=== PATIENT | female | born 1970 | race Caucasian/White ===

== ENCOUNTER 2016-03-09 17:53 | Observation (INO) | payer OTHER ==
[~2016-03-09] VITALS: Ht 160 cm; Wt 133.1 kg
[2016-03-09] MEDS ORDERED: ASPIRIN 81 MG TAB.CHEW PO ONE (20:30)
[2016-03-09 20:37] LABS: BASO # 0.1 x10^3/uL (0.0-0.2); BASO % 1 % (0-3); EOS % 1 % (0-3); HEMATOCRIT 43.2 % (36.0-47.0); LYMPH % 27 % (24-48); MEAN CORPUSCULAR HEMOGLOBIN 27 pg (25-35); MEAN CORPUSCULAR HGB CONC 32 g/dL (31-37); MEAN CORPUSCULAR VOLUME 85 fL (79-100); MONO % 7 % (0-9); NEUT % 65 % (31-73); PLATELET COUNT 213 x10^3/uL (140-400); RED BLOOD COUNT 5.09 x10^6/uL (3.50-5.40); RED CELL DISTRIBUTION WIDTH 14.4 % (11.5-14.5)
[2016-03-09 20:50] LABS: CALCIUM 9.4 mg/dL (8.5-10.1); CREATININE 0.9 mg/dL (0.6-1.0); POTASSIUM 3.7 mmol/L (3.5-5.1)
[2016-03-09 20:56] LABS: ALBUMIN 3.9 g/dL (3.4-5.0); DIRECT BILIRUBIN 0.1 mg/dL (0.0-0.2); TOTAL BILIRUBIN 0.3 mg/dL (0.2-1.0); TOTAL PROTEIN 7.4 g/dL (6.4-8.2)
[2016-03-09] MEDS ORDERED: ONDANSETRON PF 4 MG/2 ML VIAL. IV PRN (22:45)
[2016-03-09] MEDS ORDERED: MORPHINE SULFATE 2 MG/ML DISP.SYRIN. IV PRN (22:45)
[2016-03-09] MEDS ORDERED: NITROGLYCERIN SUBLINGUAL 0.4 MG BOTTLE OF 25. SL PRN (22:45)
--- NOTE | 2016-03-09 22:50 | PHYS DOC ---
Past Medical History Past Medical History: Hypertension Past Surgical History: Cholecystectomy Alcohol Use: Occasionally Drug Use: None Adult General Chief Complaint Chief Complaint: CHEST WALL PAIN HPI HPI 46-year-old female presenting the emergency department with dizziness sharp left -sided chest pain with palpitations this started approximately a few hours ago. She denies nausea vomiting or diaphoresis. She denies unilateral leg swelling hemoptysis personal or family history of blood clotting disorders. Onset 2 hours ago Location chest pain duration intermittent Moderate to severe No alleviating factors Review of Systems Review of Systems Negative for abdominal pain nausea vomiting diaphoresis. Positive for chest pain without shortness of breath. All other review of systems is negative unless otherwise noted in history of present illness. Current Medications Current Medications Current Medications Medications (Trade) Dose Ordered Sig/Ryan Start Time Stop Time Status Last Admin Dose Admin Aspirin (Children'S Aspirin) 324 mg 1X ONCE 03/09/16 20:30 03/09/16 20:31 DC 03/09/16 20:25 324 MG Morphine Sulfate 2 mg PRN Q2HR PRN 03/09/16 22:45 03/10/16 22:44 Nitroglycerin (Nitrostat) 0.4 mg PRN Q5MIN PRN 03/09/16 22:45 03/10/16 22:44 Ondansetron HCl (Zofran) 4 mg PRN Q8HRS PRN 03/09/16 22:45 03/10/16 22:44 Allergies Allergies Allergies Coded Allergies Type Severity Reaction Last Updated Verified No Known Drug Allergies 03/09/16 No Physical Exam Physical Exam Constitutional: Well developed, well nourished, no acute distress, non-toxic appearance. HENT: Normocephalic, atraumatic, bilateral external ears normal, oropharynx moist, no oral exudates, nose normal. Eyes: PERRLA, EOMI, conjunctiva normal, no discharge. [] Neck: Normal range of motion, no tenderness, supple, no stridor. Cardiovascular:Heart rate regular rhythm, no murmur Lungs & Thorax: Bilateral breath sounds clear to auscultation [] Abdomen: Bowel sounds normal, soft, no tenderness, no masses, no pulsatile masses. Skin: Warm, dry, no erythema, no rash. Back: No tenderness, no CVA tenderness. [] Extremities: No tenderness, no cyanosis, no clubbing, ROM intact, no edema. No evidence of DVT present Neurologic: Alert and oriented X 3, normal motor function, normal sensory function, no focal deficits noted. [] Psychologic: Affect normal, judgement normal, mood normal. [] Current Patient Data Vital Signs Vital Signs Date Time Temp Pulse Resp B/P Pulse Ox O2 Delivery O2 Flow Rate FiO2 03/09/16 22:00 60 159/69 98 Room Air 03/09/16 20:30 17 03/09/16 19:43 98.6 98.6 Lab Values Laboratory Tests Test 03/09/16 20:30 White Blood Count 11.0x10^3/uL (4.0-11.0) Red Blood Count 5.09x10^6/uL (3.50-5.40) Hemoglobin 14.0g/dL (12.0-15.5) Hematocrit 43.2% (36.0-47.0) Mean Corpuscular Volume 85fL (79-100) Mean Corpuscular Hemoglobin 27pg (25-35) Mean Corpuscular Hemoglobin Concent 32g/dL (31-37) Red Cell Distribution Width 14.4% (11.5-14.5) Platelet Count 213x10^3/uL (140-400) Neutrophils (%) (Auto) 65% (31-73) Lymphocytes (%) (Auto) 27% (24-48) Monocytes (%) (Auto) 7% (0-9) Eosinophils (%) (Auto) 1% (0-3) Basophils (%) (Auto) 1% (0-3) Neutrophils # (Auto) 7.1x10^3uL (1.8-7.7) Lymphocytes # (Auto) 3.0x10^3/uL (1.0-4.8) Monocytes # (Auto) 0.7x10^3/uL (0.0-1.1) Eosinophils # (Auto) 0.1x10^3/uL (0.0-0.7) Basophils # (Auto) 0.1x10^3/uL (0.0-0.2) Sodium Level 143mmol/L (136-145) Potassium Level 3.7mmol/L (3.5-5.1) Chloride Level 102mmol/L (98-107) Carbon Dioxide Level 30mmol/L (21-32) Anion Gap 11 (6-14) Blood Urea Nitrogen 15mg/dL (7-20) Creatinine 0.9mg/dL (0.6-1.0) Estimated GFR (Cockcroft-Gault) 68.0 Glucose Level 97mg/dL (70-99) Calcium Level 9.4mg/dL (8.5-10.1) Total Bilirubin 0.3mg/dL (0.2-1.0) Direct Bilirubin 0.1mg/dL (0.0-0.2) Aspartate Amino Transferase (AST) 20U/L (15-37) Alanine Aminotransferase (ALT) 22U/L (14-59) Alkaline Phosphatase 102U/L (46-116) Troponin I Quantitative < 0.017ng/mL (0.000-0.055) [id number]-Type Natriuretic Peptide 140pg/mL (0-124) H Total Protein 7.4g/dL (6.4-8.2) Albumin 3.9g/dL (3.4-5.0) Lipase 191U/L (73-393) Laboratory Tests 03/09/16 20:30 Laboratory Tests 03/09/16 20:30 EKG EKG EKG shows sinus rhythm with regular rate. ST segments congruent. [place] normal. Intervals normal. Nonspecific T-wave inversions in lead V1 and V2. Radiology/Procedures Radiology/Procedures Chest x-ray shows no acute or obvious infiltrate or pneumothorax. Course & Med Decision Making Course & Med Decision Making Pertinent Labs and Imaging studies reviewed. (See chart for details) 46-year-old female presenting the emergency department with chest pain. Vital signs unremarkable. Physical exam unremarkable. EKG unremarkable. Chest x-ray unremarkable. Labs within normal limits. Given the timing of the patient's symptoms she was admitted for serial troponins. Cardiology consultation placed. Dragon Disclaimer Dragon Disclaimer This electronic medical record was generated, in whole or in part, using a voice recognition dictation system. Departure Departure Impression: Primary Impression: Chest pain Disposition: ADMITTED INPATIENT Admitting Physician: Rosie Vergara Condition: STABLE Referrals: NO PCP (PCP) SERGE OJEDA MD Mar 09, 2016 22:50
[2016-03-09] MEDS ORDERED: ATEN50TA PO (23:20)
[2016-03-09] MEDS ORDERED: HYDR25TA9 PO (23:21)
[2016-03-10 00:20] VITALS: BP 145/89
--- NOTE | 2016-03-10 00:36 | ACF ---
Admission Forms Criteria CHEST PAIN Clinical Indications for Admission to Inpatient Care (Place 'X' for any and all applicable criteria): Admission is indicated for chest pain and ANY ONE of the following(1)(2)(3)(4)(5 ): [ ]I. Angina with acute coronary syndrome (Also use Myocardial Infarction or Angina guideline) [ ]II. Hemodynamic instability [ ]III. Angina needing acute intervention as indicated by ALL of the following( 11)(12): [ ]a) Unstable angina is present as indicated by angina that is ANY ONE of the following: [ ]i) New onset [ ]ii) Nocturnal [ ]iii) Prolonged at rest [ ]iv) Progressive [ ]b) Angina warrants acute intervention as indicated by ANY ONE of the following: [ ]i) Recurrent angina (e.g, not responding as previously to treatment) [ ]ii) Angina at rest or with low-level activities despite initial medical therapy [ ]iii) New or presumably new ST-segment depression on ECG [ ]iv) Signs or symptoms of heart failure (eg, dyspnea, pulmonary edema) [ ]v) New or worsening mitral regurgitation [ ]vi) Hemodynamic instability [ ]vii) Dangerous arrhythmia (eg, sustained ventricular tachycardia) [ ]viii) History of percutaneous coronary intervention within 6 months [ ]ix) History of coronary artery bypass graft surgery [ ]x) MARCELINA risk score of 2 or greater[A] [ ]xi) History of Diabetes(14) [ ]xii) High-risk cardiac ischemia findings on noninvasive testing (e.g, echocardiogram, treadmill testing, nuclear scan) [ ]xiii) Chronic renal insufficiency (ie, estimated GFR less than 60 mL/min/1.732m) [ ]xiv) Left ventricular ejection fraction less than 40% [ ]IV. Evidence of CO (eg, cardiac biomarkers positive, ST-segment elevation on ECG) also use Myocardial Infarction Criteria Form. [ ]V. Pulmonary edema [ ]. Respiratory distress [ ]VII. Chest pain indicative of serious diagnosis other than coronary artery disease (eg, aortic dissection) [ ]VIII. Contraindications and/or Inappropriate clinical situations for Observational Care in patients with Chest Pain, when ANY ONE of the following is required: [ ]a) Patient with risk factor for pulmonary embolism, acute coronary syndrome and myocardial infarction (18) [ ]b) Patient with Pulmonary embolism require an average LOS of 4.3 days, therefore emergency department observation management is inappropriate 18,23 [ ]c) Painful condition/s in the elderly, have the highest rate of recidivism after emergency department observation management (10.8%) 20,21,22 [ ]d) Elevated cardiac biomarker requires intensive and exhaustive care (19) [ ]IX. General contraindications and/or Inappropriate clinical situations for Observational Care in patients with Chest Pain, when ANY ONE of the following is required: [ ]a) Prediction of prolongation of LOS based on ANY ONE of the following may be considered as a contraindication for observational care 2, 3, 4, 5, 6, 7, 8, 9, 10, 11 [ ]i) Age > 65 yrs. [ ]ii) Patient arriving by ambulance [ ]iii) Patient with high acuity [ ]iv) Patient requiring vital sign monitoring [ ]v) Patient on IV medication [ ]b) Systolic blood pressures 180mmHg 3,12 [ ]c) Patient with altered mental status including delirium and other alteration of consciousness, (3) [ ]d) Patient whose discharge disposition will be to a snf home or rehabilitation home should not be managed in Emergency Department Observation Unit. CMS rule requires 3 days hospital stay before such placement. 3,13 [ ]e) Patient with failure to thrive due to broad array of etiologies 3,16,17 [ ]f) Inability to ambulate 3,14 Extended stay beyond goal length of stay may be needed for (1)(28): [ ]a) Specific condition diagnosed after evaluation (eg, pulmonary embolism, aortic dissection) [ ]b) Unstable angina [ ]c) Continued suspicion of acute coronary syndrome with inability to complete needed cardiac evaluation (eg, patient clinically unable to undergo stress testing) [ ]d) Myocardial infarction (Contents from ANGINA and CHEST PAIN clinical indications for admission to inpatient care have been integrated in this form) The original [employer] content created by [employer] has been revised. The portions of the content which have been revised are identified through the use of italic text or in bold, and [employer] has neither reviewed nor approved the modified material. All other unmodified content is copyright [employer]. Please see references footnoted in the original [employer] edition 2016 LILA MATHEWS Mar 10, 2016 00:36
--- NOTE | 2016-03-10 00:54 | ACF ---
Admission Forms Criteria PAIN MANAGEMENT [facility] Clinical Indications for Admission to Inpatient Care (Place 'X' for any and all applicable criteria): Hospital admission is needed for appropriate care of the patient because of ANY ONE of the following are present (1)(2)(3)(4)(5): [X]I. Severe pain requiring acute inpatient management as indicated by ALL of the following (2)(5)(10): [X]a) Continuous or frequent (eg, every 2 to 4 hours) parenteral analgesics required [A] [ ]b) Necessity (ie, alternative approaches not effective) for analgesic regimen that can only be performed or initiated in inpatient setting [ ]II. Pain causing debilitation to the point of inability to function or be supported at any other level of care [ ]III. Severe side effects from pain medications as indicated by ANY ONE of the following (12)(13)(14)(15): [ ]a) Uncontrollable seizures [ ]b) Cardiac arrhythmias [ ]c) Severe volume depletion [ ]d) Vomiting that is uncontrollable at any other level of care [ ]e) Altered mental status (Terry coma scale score less than 13) [ ]f) Obstipation with inadequate GI function to maintain nutrition [ ]g) Dehydration that is severe or persistent The original [employer] content created by [employer] has been revised. The portions of the content which have been revised are identified through the use of italic text or in bold, and [employer] [email or web address] has neither reviewed nor approved the modified material. All other unmodified content is copyright [employer]. Please see references footnoted in the original [employer] edition 2016 Admission Criteria Met?: Yes LILA MATHEWS Mar 10, 2016 00:54
[2016-03-10 03:00] VITALS: BP 118/54
--- NOTE | 2016-03-10 06:10 | EKG ---
[facility] [address] [place] [address] Test Date: 2016-03-09 Test Time: 19:41:33 Pat Name: CARLOS MERCER Department: Room: [facility] Gender: F [employer] Tester: : 1970 Requested By: SERGE OJEDA Order Number: [id number] Reading MD: Geoff Cabral Measurements Intervals Speculator Rate: 58 P: 0 MN: 152 QRS: -3 QRSD: 92 T: 14 QT: 438 QTc: 434 Interpretive Statements SINUS RHYTHM Electronically Signed On 03-11-2016 15:29:11 LOOM OPERATOR APPRENTICE by Geoff Cabral
[2016-03-10 07:59] VITALS: BP 107/51
[2016-03-10 08:03] LABS: BASO # 0.1 x10^3/uL (0.0-0.2); BASO % 1 % (0-3); EOS % 1 % (0-3); HEMATOCRIT 40.5 % (36.0-47.0); HEMOGLOBIN 12.9 g/dL (12.0-15.5); LYMPH # 3.2 x10^3/uL (1.0-4.8); LYMPH % 36 % (24-48); MEAN CORPUSCULAR HEMOGLOBIN 27 pg (25-35); MEAN CORPUSCULAR HGB CONC 32 g/dL (31-37); MEAN CORPUSCULAR VOLUME 85 fL (79-100); MONO % 7 % (0-9); NEUT % 55 % (31-73); PLATELET COUNT 171 x10^3/uL (140-400); RED BLOOD COUNT 4.74 x10^6/uL (3.50-5.40); RED CELL DISTRIBUTION WIDTH 14.8 % (11.5-14.5); WHITE BLOOD COUNT 8.7 x10^3/uL (4.0-11.0)
[2016-03-10 08:06] LABS: CALCIUM 8.9 mg/dL (8.5-10.1); CREATININE 0.9 mg/dL (0.6-1.0); POTASSIUM 3.2 mmol/L (3.5-5.1)
--- NOTE | 2016-03-10 08:22 | RAD ---
EXAM: Chest, single view. HISTORY: Chest pain. COMPARISON: None. FINDINGS: A frontal view of the chest is obtained. There is no infiltrate, effusion or pneumothorax. The heart is normal in size. IMPRESSION: No acute pulmonary finding.
[2016-03-10] MEDS ORDERED: ATENOLOL 50 MG TABLET PO SCH (10:00)
[2016-03-10] MEDS ORDERED: HYDROCHLOROTHIAZIDE 25 MG TABLET PO SCH (10:00)
--- NOTE | 2016-03-10 10:25 | PDOC2 ---
CARDIAC CONSULT DATE OF CONSULT Date of Consult DATE: 03/10/16 TIME: 10:19 REASON FOR CONSULT Reason for Consult: Chest pain REFERRING PHYSICIAN Referring Physician: Shahrzad SOURCE Source: Chart review, Patient HISTORY OF PRESENT ILLNESS HISTORY OF PRESENT ILLNESS This is a 46 yo female admitted for complains of chest pain. dizziness, palpitations. Reports she came from [place] about a month ago and drove to [place]. She also was taking OCP with last dose about a week ago and also quit smoking about 5 days ago. Denies any prior VTE, CAD, falls or any recent injury. No significant swelling to bilateral LE. Reports that in the last 2 weeks she has been having episodes of palpitations which not long lasting about 2-3x weekly. 2 days ago she had palpitations but did not bother her as much as what happened to her at work yesterday while walking. She felt left sharp pain , palpitations, then dizziness so she went ahead and sat down. [place] left chest tightness nonradiating and felt anxious and maybe SOA. No diaphoresis, nausea or vomiting. Her symptoms lasted about 1 hour before it got better. Currently she is asymptomatic and at home she takes atenolol, HCTZ for her HTN. PAST MEDICAL HISTORY Past Medical History HTN, morbid obesity (lost about 90 lbs so far with diet and exercise) otherwise no other pertinent history PAST SURGICAL HISTORY Past Surgical History: Cholecystectomy FAMILY HISTORY Family History: Hypertension, Stroke SOCIAL HISTORY Smoke: <1 pack per day (2 yrs) ALCOHOL: occassional Drugs: None Lives: Alone CURRENT MEDICATIONS CURRENT MEDICATIONS Current Medications Medications (Trade) Dose Ordered Sig/Ryan Route PRN Reason Start Time Stop Time Status Last Admin Dose Admin Aspirin (Children'S Aspirin) 324 mg 1X ONCE PO 03/09/16 20:30 03/09/16 20:31 DC 03/09/16 20:25 ALLERGIES ALLERGIES: Coded Allergies: No Known Drug Allergies (Unverified , 03/09/16) ROS Review of System 14 point ROS evaluated with pertinent positives noted per HPI PHYSICAL EXAM General: Alert, Oriented X3, Cooperative, No acute distress HEENT: Atraumatic, Mucous membr. moist/pink Lungs: Clear to auscultation, Normal air movement Heart: Regular rate, Normal S1, Normal S2, No murmurs Abdomen: Soft, No tenderness, Other (obesity) Extremities: No edema, Other (negativ homans) Skin: No breakdown, No significant lesion Neuro: Normal speech, Sensation intact Psych/Mental Status: Mental status NL, Mood NL MUSCULOSKELETAL: Full range of motion without pain VITALS VITALS Vital Signs Date Time Temp Pulse Resp B/P Pulse Ox O2 Delivery O2 Flow Rate FiO2 03/10/16 07:59 98.1 53 18 107/51 98 Room Air 98.1 LABS Lab: Laboratory Tests Test 03/09/16 20:30 03/10/16 07:00 White Blood Count 11.0x10^3/uL (4.0-11.0) 8.7x10^3/uL (4.0-11.0) Red Blood Count 5.09x10^6/uL (3.50-5.40) 4.74x10^6/uL (3.50-5.40) Hemoglobin 14.0g/dL (12.0-15.5) 12.9g/dL (12.0-15.5) Hematocrit 43.2% (36.0-47.0) 40.5% (36.0-47.0) Mean Corpuscular Volume 85fL (79-100) 85fL (79-100) Mean Corpuscular Hemoglobin 27pg (25-35) 27pg (25-35) Mean Corpuscular Hemoglobin Concent 32g/dL (31-37) 32g/dL (31-37) Red Cell Distribution Width 14.4% (11.5-14.5) 14.8% (11.5-14.5) Platelet Count 213x10^3/uL (140-400) 171x10^3/uL (140-400) Neutrophils (%) (Auto) 65% (31-73) 55% (31-73) Lymphocytes (%) (Auto) 27% (24-48) 36% (24-48) Monocytes (%) (Auto) 7% (0-9) 7% (0-9) Eosinophils (%) (Auto) 1% (0-3) 1% (0-3) Basophils (%) (Auto) 1% (0-3) 1% (0-3) Neutrophils # (Auto) 7.1x10^3uL (1.8-7.7) 4.8x10^3uL (1.8-7.7) Lymphocytes # (Auto) 3.0x10^3/uL (1.0-4.8) 3.2x10^3/uL (1.0-4.8) Monocytes # (Auto) 0.7x10^3/uL (0.0-1.1) 0.6x10^3/uL (0.0-1.1) Eosinophils # (Auto) 0.1x10^3/uL (0.0-0.7) 0.1x10^3/uL (0.0-0.7) Basophils # (Auto) 0.1x10^3/uL (0.0-0.2) 0.1x10^3/uL (0.0-0.2) Sodium Level 143mmol/L (136-145) 142mmol/L (136-145) Potassium Level 3.7mmol/L (3.5-5.1) 3.2mmol/L (3.5-5.1) Chloride Level 102mmol/L (98-107) 103mmol/L (98-107) Carbon Dioxide Level 30mmol/L (21-32) 31mmol/L (21-32) Anion Gap 11 (6-14) 8 (6-14) Blood Urea Nitrogen 15mg/dL (7-20) 15mg/dL (7-20) Creatinine 0.9mg/dL (0.6-1.0) 0.9mg/dL (0.6-1.0) Estimated GFR (Cockcroft-Gault) 68.0 68.0 Glucose Level 97mg/dL (70-99) 93mg/dL (70-99) Calcium Level 9.4mg/dL (8.5-10.1) 8.9mg/dL (8.5-10.1) Total Bilirubin 0.3mg/dL (0.2-1.0) Direct Bilirubin 0.1mg/dL (0.0-0.2) Aspartate Amino Transf (AST/SGOT) 20U/L (15-37) Alanine Aminotransferase (ALT/SGPT) 22U/L (14-59) Alkaline Phosphatase 102U/L (46-116) Troponin I Quantitative < 0.017ng/mL (0.000-0.055) < 0.017ng/mL (0.000-0.055) VF-Enz-X-Type Natriuretic Peptide 140pg/mL (0-124) Total Protein 7.4g/dL (6.4-8.2) Albumin 3.9g/dL (3.4-5.0) Lipase 191U/L (73-393) ASSESSMENT/PLAN ASSESSMENT/PLAN 1. Chest pain: Notable for chest pain and palpitations. Troponin series normal ruling out AMI. EKG SR with asymmetrical t wave inversion to septal leads with LAE otherwise no significant acute changes. Tele with SB in the 40s likely from atenolol use with hypokalemia. QTc 407. Replace K. Hypercoagulable state with noted obesity/OCP/tobaccoism. Will check DDIMER and if positive then will proceed with CTA. If negative then will consider for MPI, likely with treadmill /dobutamine if bradycardia continues. TTE today, TSH, lipid panel. 2. Asymptomatic bradycardia: stable. Suspect induced by atenolol use. 3. Morbid obesity: BMI 52. Continue with lifestyle modification 4. OCP with smoking: quit both about a week ago. 5. HTN: labile. Continue with HCTZ but will utilize low dose lisinopril instead. 6. Hypokalemia: replace Problems: MICHAEL NG APRN Mar 10, 2016 10:25
--- NOTE | 2016-03-10 10:29 | PDOC1 ---
History and Physical Date of Admission Date of Admission DATE: 03/10/16 TIME: 10:23 Identification/Chief Complaint Chief Complaint chest pain Source Source: Chart review, Patient History of Present Illness History of Present Illness she was at work yesterday, 5 pm, had worsening chest pain with pressure sensation, then "jumping" sensation of left chest wall, she "could feel her heart pounding" she did not take her pulse at the time. she has prior symptoms similar, and had a nuclear stress test 15 years ago. pain did not improve with rest, she felt "squeezing around her heart" Htn, good control obesity, she is trying to lose weight, Past Medical History Cardiovascular: HTN GI: No pertinent hx Heme/Onc: No pertinent hx Rheumatologic: No pertinent hx Infectious disease: No pertinent hx Endocrine: Other (obese) Dermatology: No pertinent hx Family History Family History: No Significant Social History Smoke: No ALCOHOL: none Current Problem List Problem List Problems Medical Problems: (1) Chest pain Status: Acute Problems: Current Medications Current Medications Current Medications Aspirin (Children'S Aspirin) 324 mg 1X ONCE PO Last administered on 03/09/16t 20:25; Start 03/09/16 at 20:30; Stop 03/09/16 at 20:31; Status DC Ondansetron HCl (Zofran) 4 mg PRN Q8HRS PRN IV NAUSEA/VOMITING; Start 03/09/16 at 22:45; Stop 03/10/16 at 22:44 Morphine Sulfate 2 mg PRN Q2HR PRN IV SEVERE PAIN; Start 03/09/16 at 22:45; Stop 03/10/16 at 22:44 Nitroglycerin (Nitrostat) 0.4 mg PRN Q5MIN PRN SL CHEST PAIN; Start 03/09/16 at 22:45; Stop 03/10/16 at 22:44 Atenolol (Tenormin) 50 mg DAILY PO ; Start 03/10/16 at 10:00 Hydrochlorothiazide (Hydrodiuril) 25 mg DAILY PO ; Start 03/10/16 at 10:00 Lidocaine (Lidoderm) 1 patch DAILY TD ; Start 03/10/16 at 11:00 Active Scripts Active Reported Hydrochlorothiazide Tablet (Hydrochlorothiazide) 25 Mg Tablet 25 Mg PO DAILY Atenolol 50 Mg Tablet 1 Tab PO DAILY Allergies Allergies: Coded Allergies: No Known Drug Allergies (Unverified , 03/09/16) ROS General: No: Appetite, Chills, Fatigue, Malaise, Night Sweats, Other PSYCHOLOGICAL ROS: No: Anxiety, Behavioral Disorder, Concentration difficultie , Decreased libido, Depression, Disorientation, Hallucinations, Hostility, Irritablity, Memory difficulties, Mood Swings, Obsessive thoughts, Other, Physical abuse, Sexual abuse, Sleep disturbances, Suicidal ideation Eyes: No Blurry vision, No Decreased vision, No Double vision, No Dry eyes, No Excessive tearing, No Eye Pain, No Itchy Eyes, No Loss of vision, No Other, No Photophobia, No Scotomata, No Uses contacts, No Uses glasses HEENT: No: Epistaxis, Heacaches, Hearing change, Nasal congestion, Nasal discharge, Oral lesions, Other, Sinus pain, Sneezing, Snoring, Sore Throat, Tinnitus, Vertigo, Visual Changes, Vocal changes Cardiovascular: yes Chest Pain, yes Palpitations, No Edema, No Lt Headedness, No Orthopnea, No Other, No Paroxysmal Noc. Dyspnea Gastrointestinal: No Abdominal Pain, No Constipation, No Diarrhea, No Hematochezia, No Melena, No Nausea, No Other, No Vomiting Genitourinary: No , No , No , No , No , No , No , No Discharge, No Dysuria, No Flank Pain, No Frequency, No Hematuria, No Incontinence, No Other, No Pain, No Retention, No Urgency Musculoskeletal: No Gait Disturbance, No Joint Pain, No Joint Stiffness, No Joint Swelling, No Muscle Pain, No Muscular Weakness, No Other, No Pain In:, No Swelling In: Neurological: No Behavorial Changes, No Bowel/Bladder ControlChng, No Confusion , No Dizziness, No Gait Disturbance, No Headaches, No Impaired Coord/balance, No Memory Loss, No Numbness/Tingling, No Other, No Seizures, No Speech Problems , No Tremors, No Visual Changes, No Weakness Skin: No Acne, No Dry Skin, No Eczema, No Hair Changes, No Lumps, No Mole Changes, No Mottling, No Nail Changes, No Other, No Pruritus, No Rash, No Skin Lesion Changes Physical Exam General: Alert, Oriented X3, Cooperative, No acute distress HEENT: Atraumatic, PERRLA, EOMI Lungs: Clear to auscultation Heart: other (painful to touch left of sternum, no pleurisy) Abdomen: Normal bowel sounds, Soft, No tenderness Rectal Exam: not examined Extremities: No cyanosis, No edema, Normal pulses Skin: No rashes, No significant lesion Neuro: Normal tone, Sensation intact, Cranial nerves 3-12 NL Psych/Mental Status: Mental status NL, Mood NL Vitals Vitals Vital Signs Date Time Temp Pulse Resp B/P Pulse Ox O2 Delivery O2 Flow Rate FiO2 03/10/16 07:59 98.1 53 18 107/51 98 Room Air 98.1 Labs Labs Laboratory Tests Test 03/09/16 20:30 03/10/16 07:00 White Blood Count 11.0x10^3/uL (4.0-11.0) 8.7x10^3/uL (4.0-11.0) Red Blood Count 5.09x10^6/uL (3.50-5.40) 4.74x10^6/uL (3.50-5.40) Hemoglobin 14.0g/dL (12.0-15.5) 12.9g/dL (12.0-15.5) Hematocrit 43.2% (36.0-47.0) 40.5% (36.0-47.0) Mean Corpuscular Volume 85fL (79-100) 85fL (79-100) Mean Corpuscular Hemoglobin 27pg (25-35) 27pg (25-35) Mean Corpuscular Hemoglobin Concent 32g/dL (31-37) 32g/dL (31-37) Red Cell Distribution Width 14.4% (11.5-14.5) 14.8% (11.5-14.5) Platelet Count 213x10^3/uL (140-400) 171x10^3/uL (140-400) Neutrophils (%) (Auto) 65% (31-73) 55% (31-73) Lymphocytes (%) (Auto) 27% (24-48) 36% (24-48) Monocytes (%) (Auto) 7% (0-9) 7% (0-9) Eosinophils (%) (Auto) 1% (0-3) 1% (0-3) Basophils (%) (Auto) 1% (0-3) 1% (0-3) Neutrophils # (Auto) 7.1x10^3uL (1.8-7.7) 4.8x10^3uL (1.8-7.7) Lymphocytes # (Auto) 3.0x10^3/uL (1.0-4.8) 3.2x10^3/uL (1.0-4.8) Monocytes # (Auto) 0.7x10^3/uL (0.0-1.1) 0.6x10^3/uL (0.0-1.1) Eosinophils # (Auto) 0.1x10^3/uL (0.0-0.7) 0.1x10^3/uL (0.0-0.7) Basophils # (Auto) 0.1x10^3/uL (0.0-0.2) 0.1x10^3/uL (0.0-0.2) Sodium Level 143mmol/L (136-145) 142mmol/L (136-145) Potassium Level 3.7mmol/L (3.5-5.1) 3.2mmol/L (3.5-5.1) Chloride Level 102mmol/L (98-107) 103mmol/L (98-107) Carbon Dioxide Level 30mmol/L (21-32) 31mmol/L (21-32) Anion Gap 11 (6-14) 8 (6-14) Blood Urea Nitrogen 15mg/dL (7-20) 15mg/dL (7-20) Creatinine 0.9mg/dL (0.6-1.0) 0.9mg/dL (0.6-1.0) Estimated GFR (Cockcroft-Gault) 68.0 68.0 Glucose Level 97mg/dL (70-99) 93mg/dL (70-99) Calcium Level 9.4mg/dL (8.5-10.1) 8.9mg/dL (8.5-10.1) Total Bilirubin 0.3mg/dL (0.2-1.0) Direct Bilirubin 0.1mg/dL (0.0-0.2) Aspartate Amino Transf (AST/SGOT) 20U/L (15-37) Alanine Aminotransferase (ALT/SGPT) 22U/L (14-59) Alkaline Phosphatase 102U/L (46-116) Troponin I Quantitative < 0.017ng/mL (0.000-0.055) < 0.017ng/mL (0.000-0.055) XE-Xwm-P-Type Natriuretic Peptide 140pg/mL (0-124) Total Protein 7.4g/dL (6.4-8.2) Albumin 3.9g/dL (3.4-5.0) Lipase 191U/L (73-393) Laboratory Tests Test 03/09/16 20:30 03/10/16 07:00 White Blood Count 11.0x10^3/uL (4.0-11.0) 8.7x10^3/uL (4.0-11.0) Red Blood Count 5.09x10^6/uL (3.50-5.40) 4.74x10^6/uL (3.50-5.40) Hemoglobin 14.0g/dL (12.0-15.5) 12.9g/dL (12.0-15.5) Hematocrit 43.2% (36.0-47.0) 40.5% (36.0-47.0) Mean Corpuscular Volume 85fL (79-100) 85fL (79-100) Mean Corpuscular Hemoglobin 27pg (25-35) 27pg (25-35) Mean Corpuscular Hemoglobin Concent 32g/dL (31-37) 32g/dL (31-37) Red Cell Distribution Width 14.4% (11.5-14.5) 14.8% (11.5-14.5) Platelet Count 213x10^3/uL (140-400) 171x10^3/uL (140-400) Neutrophils (%) (Auto) 65% (31-73) 55% (31-73) Lymphocytes (%) (Auto) 27% (24-48) 36% (24-48) Monocytes (%) (Auto) 7% (0-9) 7% (0-9) Eosinophils (%) (Auto) 1% (0-3) 1% (0-3) Basophils (%) (Auto) 1% (0-3) 1% (0-3) Neutrophils # (Auto) 7.1x10^3uL (1.8-7.7) 4.8x10^3uL (1.8-7.7) Lymphocytes # (Auto) 3.0x10^3/uL (1.0-4.8) 3.2x10^3/uL (1.0-4.8) Monocytes # (Auto) 0.7x10^3/uL (0.0-1.1) 0.6x10^3/uL (0.0-1.1) Eosinophils # (Auto) 0.1x10^3/uL (0.0-0.7) 0.1x10^3/uL (0.0-0.7) Basophils # (Auto) 0.1x10^3/uL (0.0-0.2) 0.1x10^3/uL (0.0-0.2) Sodium Level 143mmol/L (136-145) 142mmol/L (136-145) Potassium Level 3.7mmol/L (3.5-5.1) 3.2mmol/L (3.5-5.1) Chloride Level 102mmol/L (98-107) 103mmol/L (98-107) Carbon Dioxide Level 30mmol/L (21-32) 31mmol/L (21-32) Anion Gap 11 (6-14) 8 (6-14) Blood Urea Nitrogen 15mg/dL (7-20) 15mg/dL (7-20) Creatinine 0.9mg/dL (0.6-1.0) 0.9mg/dL (0.6-1.0) Estimated GFR (Cockcroft-Gault) 68.0 68.0 Glucose Level 97mg/dL (70-99) 93mg/dL (70-99) Calcium Level 9.4mg/dL (8.5-10.1) 8.9mg/dL (8.5-10.1) Total Bilirubin 0.3mg/dL (0.2-1.0) Direct Bilirubin 0.1mg/dL (0.0-0.2) Aspartate Amino Transf (AST/SGOT) 20U/L (15-37) Alanine Aminotransferase (ALT/SGPT) 22U/L (14-59) Alkaline Phosphatase 102U/L (46-116) Troponin I Quantitative < 0.017ng/mL (0.000-0.055) < 0.017ng/mL (0.000-0.055) AU-Pun-B-Type Natriuretic Peptide 140pg/mL (0-124) Total Protein 7.4g/dL (6.4-8.2) Albumin 3.9g/dL (3.4-5.0) Lipase 191U/L (73-393) VTE Prophylaxis Ordered VTE Prophylaxis Devices: Yes VTE Pharmacological Prophylaxi: No Assessment/Plan Assessment/Plan chest pain, pressure and palpitations pain is also reproducible, lidocaine patch, ice, OT eval for stretch, pain relief try to treat chostochondritis, morbid obesity, BMI 52, she is trying to lose weight, has lost > 60 lbs this year htn, atenolol, hctz obs LATONIA SALAS MD Mar 10, 2016 10:29
[2016-03-10 11:00] VITALS: BP 126/68
[2016-03-10] MEDS ORDERED: LIDOCAINE (700MG/PATCH) PATCH. TD SCH (11:00)
[2016-03-10 11:12] LABS: CHOLESTEROL/HDL RATIO 3.8
--- NOTE | 2016-03-10 11:13 | EKG ---
[facility] [address] [place] [address] Test Date: 2016-03-10 Test Time: 10:55:27 Pat Name: CARLOS MERCER Department: Room: [facility] Gender: F [employer]: : 1970 Requested By: MICHAEL NG Order Number: [id number] Reading MD: Geoff Cabral Measurements Intervals [place] Rate: 48 P: 0 KS: 164 QRS: 8 QRSD: 88 T: 22 QT: 452 QTc: 407 Interpretive Statements SINUS BRADYCARDIA Electronically Signed On 03-11-2016 15:34:57 [employer] by Geoff Cabral
[2016-03-10] MEDS ORDERED: POTASSIUM CHLORIDE 20 MEQ TABLET.ER. PO ONE (11:15)
[2016-03-10 12:09] LABS: NEG OBC UR NEG; POS OBC UR POS
[2016-03-10 15:00] VITALS: BP 116/65
--- NOTE | 2016-03-10 16:20 | RAD ---
APPROVED REPORT Test Type: Exercise Stress Nurse/Tech: LILIA Mcguire RN Test Indications: Chest pain Cardiac History: HTN, see EHR Medications: see EHR Medical History: see EHR Resting ECG: SR Resting Heart Rate: 64 bpm Resting Blood Pressure: 138/80mmHg Pretest Chest Pain: No chest pain Nurse/Tech Notes Lungs CTA, heart tones WNL Consent: The procedure was explained to the patient in lay terms. Informed consent was witnessed. Jim eout was entered into [employer] [place]. History and Stress Test performed by Hannah Dow RT (R) (N) Stress Symptoms Reports chest tightness POST EXERCISE Reason for Termination: Reached target heart rate Target HR: Yes Max HR: 180 bpm Exercise duration: 6:30 min:sec, Stage Exercise capacity: 10METs Max Blood Pressure: 191/81mmHg Blood Pressure response to exercise: Normal blood pressure response during stress. Chest Pain: Yes. chest tightness Arrhythmia: No. ST Change: No. INTERPRETATION Stress EKG Conclusion: Baseline EKG showed sinus rhythm. No ischemic changes at peak stress. No arr hythmias. Imaging Protocol IMAGE PROTOCOL: Stress Tc-99m/rest Tc-99m 2 days Rest: Stress: Viability: Radiopharm.Tc99m Sestamibi [id number] Duration 15min. Img Date 03/10/2016 Inj-Img [id number]. Stress Admin Site: IV - Right WristAdministrator: Sebastien Capps RT (R)(N) STRESS DATA End Diast. Vol.83.0mlAv. Heart Rate64.0bpm End Syst. Vol.25.0mlCO Index BSA0.0L/min Myocardial Vkdm483.0gEject. Yowksnsz42.0% Stress Rates Pk. Fill Rate2.73EDV/secLVtime Pk. Fill 178.18msec Pk. Empty Rate4.10ESV/secLVtime Pk. Crmwf366.41msec 03/04 Pk. Fill1.52EDV/sec Stress Scores Regional WT1.00Summed WT1.00 Regional WM0.00Summed WM1.00 Study quality was good. Left Ventricular size was at Rest and Stress. Lung uptake was Normal. Left Ventricular ejection fraction is 70%. LV Perfusion Stress scintigraphic images did not show any significant perfusion defects. Wall Motion Normal regional wall motion. LV Perf. Quant 17 Seg. SSS0.00 Stress Defect Extent (% LAD)0.00Rest Defect Extent (% LAD)Rev. Defect Extent (% LAD)0.00 Stress Defect Extent (% LCX) 0.00Rest Defect Extent (% LCX)Rev. Defect Extent (% LCX)0.00 Stress Defect Extent (% RCA)0.00Rest Defect Extent (% RCA)Rev. Defect Extent (% RCA)0.00 Stress Defect Extent (% JUDIT)0.00Rest Defect Extent (% JUDIT)Rev. Defect Extent (% JUDIT)0.00 Conclusion 1. Treadmill exercise cardioisotope stress test did not show any evidence of ischemia or infarct. 2. Normal left ventricular systolic function with ejection fraction calculated at 70%. 3. Patient had good activity tolerance. Low risk for cardiac events.
--- NOTE | 2016-03-10 16:52 | CARD ---
APPROVED REPORT EXAM: Two-dimensional and M-mode echocardiogram with Doppler and color Doppler. Other Information Quality : Average Rhythm : NSR INDICATION Chest Pain 2D DIMENSIONS RVDd3.0 (2.9-3.5cm)Left Atrium(2D)3.4 (1.6-4.0cm) IVSd0.9 (0.7-1.1cm)Aortic Root(2D)2.8 (2.0-3.7cm) LVDd4.9 (3.9-5.9cm)LVOT Diameter2.1 (1.8-2.4cm) PWd1.0 (0.7-1.1cm)LVDs3.1 (2.5-4.0cm) SV75.7 mlLVEF(%)60.3 (>50%) Aortic Valve AoV Peak Franco.126.4cm/sAoV VTI32.5cm AO Peak GR.6.4mmHgLVOT Peak Franco.123.2cm/s AO Mean GR.4mmHgAVA (VMAX)3.33cm2 Mitral Valve MV E Sjlcocpn53.5cm/sMV E Peak Gr.3mmHg MV DECEL [id number] A Obenzfle30.7cm/s MV E Mean Gr.1mmHgMV TOT10yv E/A Ratio1.5MV A [id number] MVA (PHT)4.15cm2 Tricuspid Valve TR P. Jtnzykse832rm/sRAP [id number] TR Peak Gr.25uaCwMVOI76unXj Pulmonary Vein S1 Fstxoxhh84.0cm/sD2 Kzztmyxj87.9cm/s PVa [id number] LEFT VENTRICLE The left ventricle is normal size. There is normal left ventricular wall thickness. Left ventricle sy stolic function is normal. The Ejection Fraction is 55%. There is normal LV segmental wall motion. Th e left ventricular diastolic function and filling is normal for age. RIGHT VENTRICLE The right ventricle is normal size. The right ventricular systolic function is normal. ATRIA The left atrium size is normal. The right atrium size is normal. The interatrial septum is intact wit h no evidence for an atrial septal defect or patent foramen ovale as noted on 2-D or Doppler imaging. AORTIC VALVE The aortic valve is normal in structure and function. The aortic valve is trileaflet. Doppler and Col or Flow revealed no significant aortic regurgitation. There is no significant aortic valvular stenosi s. MITRAL VALVE The mitral valve is normal in structure and function. There is no mitral valve stenosis. Doppler and Color Flow revealed no mitral valve regurgitation noted. TRICUSPID VALVE The tricuspid valve is normal in structure and function. Doppler and Color Flow revealed trace to mil d tricuspid regurgitation. The PA pressure was estimated at 23 mmHg. There is no tricuspid valve sten osis. PULMONIC VALVE The pulmonic valve is not well visualized. Doppler and Color Flow revealed no pulmonic valvular regur gitation. There is no pulmonic valvular stenosis. GREAT VESSELS The aortic root is normal in size. Normal pulmonary venous flow (Doppler). The IVC is normal in size and collapses >50% with inspiration. PERICARDIAL EFFUSION There is no evidence of significant pericardial effusion. Critical Notification Critical Value: No <Conclusion> Left ventricle systolic function is normal. The Ejection Fraction is 55%. There is normal LV segmental wall motion. Ttrace to mild tricuspid regurgitation. The PA pressure was estimated at 23 mmHg. There is no evidence of significant pericardial effusion.
[2016-03-10 19:00] VITALS: BP 126/68
== END 2016-03-10 20:20 | disposition home or self-care (01) ==
LOC: ER 17:53 → ED HOLD 22:46 → ER 03-10 00:10 → 6 SOUTH 03-10 01:08
PROVIDERS: ADMIT Internal Medicine; ATTEND Internal Medicine
DX: R07.9 Chest pain, unspecified (principal); R00.2 Palpitations; R00.1 Bradycardia, unspecified; E66.01 Morbid (severe) obesity due to excess calories; I10 Essential (primary) hypertension; E87.6 Hypokalemia; D68.59 Other primary thrombophilia; F17.210 Nicotine dependence, cigarettes, uncomplicated; Z68.43 Body mass index [BMI] 50.0-59.9, adult; Z82.3 Family history of stroke; Z82.49 Family history of ischemic heart disease and other diseases of the circulatory system
CPT/HCPCS: 36415; 71010; 78452; 80048; 80061; 80076; 81025; 83690; 83880; 84443; 84484; 85027; 85379; 93005; 93017; 93306; 99285; A9500; G0378; 96374; G0379

== ENCOUNTER 2016-05-22 20:46 | Emergency (ER) | payer SELFPAY ==
[~2016-05-22 20:46] MED LIST: ATEN50TA PO; HYDR25TA9 PO
[2016-05-22 20:52] VITALS: BP 146/103
--- NOTE | 2016-05-22 21:51 | PHYS DOC ---
Past Medical History Past Medical History: No Pertinent History, Hypertension Past Surgical History: Cholecystectomy Additional Information: Nonsmoker Alcohol Use: Occasionally Drug Use: None Adult General Chief Complaint Chief Complaint: KNEE INJURY HPI HPI Patient is a 46 year old female who presents with with knee pain after injury at 11:00 today. The patient was going up the stairs and tripped. She hit her left knee against the next step up. She has been ambulatory. She denies any other injuries. She does not have a PCP. Review of Systems Review of Systems Constitutional: Denies fever or chills. [] Musculoskeletal: Denies back pain. Reports left knee pain. Integument: Denies rash or skin lesions. Reports left knee ecchymosis and abrasion. Neurologic: Denies headache, focal weakness or sensory changes. Denies loss of consciousness. Allergies Allergies Allergies Coded Allergies Type Severity Reaction Last Updated Verified No Known Drug Allergies 03/09/16 No Physical Exam Physical Exam Constitutional: Well developed, well nourished, no acute distress, non-toxic appearance. [] HENT: Normocephalic, atraumatic, oropharynx moist. [] Eyes: PERRLA, EOMI, conjunctiva normal, no discharge. [] Skin: Warm, dry, no erythema, no rash. There is ecchymosis with a small abrasion just distal to the left patella. Extremities: Left patella tenderness, decreased ROM due to pain with incomplete extension and decreased flexion, mild edema. 2+ pedal pulses. Light touch sensation intact distally. There is no tenderness of the left hip, thigh, calf, ankle, or foot. Neurologic: Alert and oriented X 3, normal motor function, normal sensory function, no focal deficits noted. The patient is ambulatory with a limp favoring the left. Psychologic: Affect normal, judgement normal, mood normal. [] Current Patient Data Vital Signs Vital Signs Date Time Temp Pulse Resp B/P Pulse Ox O2 Delivery O2 Flow Rate FiO2 05/22/16 20:52 97.9 63 20 100 Room Air 97.9 EKG EKG [] Radiology/Procedures Radiology/Procedures Three-view x-ray of the left knee reviewed and interpreted by myself with Dr. Levy. There are no acute fractures or dislocations. Course & Med Decision Making Course & Med Decision Making Pertinent Labs and Imaging studies reviewed. (See chart for details) Patient is provided with an Juan wrap prior to discharge. She declines offer for prescription for pain medication. She is given contact information for orthopedics for follow-up. Return precautions were discussed. She verbalizes understanding and agrees with plan. Lukas Disclaimer Lukas Disclaimer This electronic medical record was generated, in whole or in part, using a voice recognition dictation system. Departure Departure Impression: Primary Impression: Knee contusion Disposition: HOME, SELF-CARE Condition: STABLE Referrals: TAI CHOI MD Patient Instructions: Knee Pain, [id number], Knee Wraps (Elastic Bandage) and RICE Additional Instructions: There were no broken bones or dislocations seen on your x-ray. Please wear the provided Juan wrap to help stabilize your knee and decrease swelling and bruising. Please follow-up with the orthopedic doctor listed below if your pain continues. Return to the emergency department if you have any new or concerning symptoms. Problem Qualifiers Primary Impression: Knee contusion Encounter type: initial encounter Laterality: left Qualified Code: S80.02XA - Contusion of left knee, initial encounter CLARA BOONE May 22, 2016 21:51
--- NOTE | 2016-05-23 07:45 | RAD ---
Indication injury, pain. AP oblique and lateral views of the left knee were obtained. No acute or significant bony finding is seen
== END 2016-05-22 22:00 | disposition home or self-care (01) ==
LOC: ER 20:46
DX: S80.02XA Contusion of left knee, initial encounter (principal); I10 Essential (primary) hypertension; Z90.49 Acquired absence of other specified parts of digestive tract; W10.9XXA Fall (on) (from) unspecified stairs and steps, initial encounter; Y93.89 Activity, other specified; Y92.89 Other specified places as the place of occurrence of the external cause; Y99.8 Other external cause status
CPT/HCPCS: 73562; 99284